=== PATIENT | male | born 1980 | race Caucasian/White ===

== ENCOUNTER → 2017-06-17 | Outpatient (CLI) | payer MEDICARE ==
[~2017-06-17] MED LIST: ACETAMINOPHEN500 M2 PO; AMBIEN10 MG PO; AMOXIL500 M1 PO; ANTIBIOTIC; ATARAX PO; DILANTIN KAPSE100 MG PO; DILANTIN PO; FIORICET 50-321 EACH PO; FLEXERIL10 M1 PO; FLEXERIL10 MG PO; IBUPROFEN800 MG PO; NEURONTIN600 MG PO; NO MEDICATIONS; ORUDIS75 M1 PO; SEROQUEL PO; VICODIN 5/1 TAB 5/50 PO; [UNRECOGNIZED DRUG - REMARK]
--- NOTE | ~2017-06-17 | CR181 ---
[facility] A Service of [facility] RADIOLOGY TEXT RESULTS PATIENT: DAWNA GARCIA JR LOCATION: [facility] : 82 UNIT #: [id number] AGE: [address]: Andrew Hubbard SEX: M ORDER DR: [id number] [facility] [address] [place], [place] [address] [id number] O MR#: [id number] Acc #: [id number] NAME: DAWNA GARCIA : 1980 SEX: M STUDY DATE/TIME: 06/17/2017 11:29 UNIT: [facility] ROOM: STUDY DESCRIPTION: CR Lumbar Spine 2 or 3 Views Attending Physician: Ethan Hubbard P.A.-C. Ordering Physician: Ethan Hubbard P.A.-C. MEDICAL IMAGING REPORT This report is preliminary unless electronic signature is present EXAM Lumbar spine, 06/17/2017. HISTORY 36-year-old male with low back pain for 1 month. No specific injury. COMPARISON Lumbar spine, 08/18/2015. FINDINGS Three lateral views of the lumbar spine were performed with flexion and extension maneuvers. Vertebral body heights and alignment are normally maintained. No abnormal spondylolisthesis with flexion and extension maneuvers. Disc spaces are normal. Facets are unremarkable. IMPRESSION Vertebral body heights and alignment are normally maintained. No abnormal spondylolisthesis with flexion and extension maneuvers. Dictated by... David Bashir M.D. THIS IS AN ELECTRONICALLY VERIFIED REPORT David Bashir M.D. at 06/18/2017 8:07 AM YASMINE/shaye TD: 06/17/2017 23:48 JOB #: [id number] MEDICAL IMAGING REPORT Page 1 of 1 COPY
== END | disposition home or self-care (01) ==
LOC: CRAD 11:06
DX: M51.36 Other intervertebral disc degeneration, lumbar region (principal)
CPT/HCPCS: 72100